=== PATIENT | female | born 1975 | race Two or more races ===

== ENCOUNTER 2016-11-04 11:31 | Day surgery (SDC) | payer BC, OTHER ==
[2016-11-01 14:30] VITALS: BMI 28.3
[~2016-11-04 11:31] MED LIST: LACTATED RINGERS 1,000 ML IV SCH
[2016-11-04] MEDS ORDERED: LIDOCAINE 1% 20 ML VIAL (10MG/ML) FOR IV START SQ ONE (12:08)
[2016-11-04 12:15] VITALS: TEMP 98.9
[2016-11-04] MEDS ORDERED: PROPOFOL 10 MG/ML 20 ML VIAL IV ONE (12:46)
[2016-11-04] MEDS ORDERED: MIDAZOLAM 2 MG/2 ML VIAL ONE (12:46)
[2016-11-04] MEDS ORDERED: fentaNYL (PF) 50 MCG/ML 2 ML AMP ONE (12:46)
[2016-11-04] MEDS ORDERED: LIDOCAINE 1% INJ 10MG/ML (20 ML MDV) ONE (12:46)
[2016-11-04 13:19] VITALS: RESP 16
[2016-11-04 13:37] LABS: Basophils % (A) 0 %; CH 34.3; CHCM 33.7; Eosinophils # (A) 0.2 k/uL (0-0.7); Eosinophils % (A) 3 %; HCT 41.8 % (34.0-46.0); HDW 2.09; HGB 13.7 gm/dL (11.4-16.0); Luc # (Auto) 0.14; Luc % (Auto) 2; Lymphocytes # (A) 1.9 k/uL (1.0-4.8); Lymphocytes % (A) 22 %; MCH 33.5 pg (25.0-35.0); MCHC 32.8 g/dL (31.0-37.0); MCV 102.2 fL (80.0-100.0); Macrocytosis Slight; Mean Platelet Volume 7.4; Monocytes # (A) 0.4 k/uL (0-1.0); Monocytes % (A) 4 %; Neutrophils % (A) 69 %; RDW 13.4 % (11.5-15.5); WBC 8.6 k/uL (3.8-10.6); WBC (Perox) 8.91
--- NOTE | 2016-11-04 13:56 | PCN ---
DATE OF PROCEDURE: 11/04/2016 PROCEDURE: Bone marrow aspirate and biopsy. 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 After obtaining consent from the patient, the procedure was performed in the Endoscopy Suite under general anesthesia performed by the Anesthesia Team. The patient was put on the left side in the typical position. The right posterior superior iliac crest was localized. The skin was cleansed with ChloraPrep. All sterile procedures were followed, 2% Xylocaine was used for local anesthetic. A 5 inch Jamshidi needle was inserted, about 10 mL aspirate and a 2 cm core biopsy was obtained without any difficulties. Pressure applied afterward. There was negligible blood loss. Patient tolerated the procedure very well without any immediate complications.
[2016-11-04 14:05] VITALS: BP 109/74; PULSE 79
== END 2016-11-04 14:18 | disposition home or self-care (01) ==
LOC: OR 11:31
PROVIDERS: ATTEND Internal Medicine Hematology & Oncology
DX: D47.3 Essential (hemorrhagic) thrombocythemia (principal); E61.1 Iron deficiency; N92.4 Excessive bleeding in the premenopausal period; G43.909 Migraine, unspecified, not intractable, without status migrainosus; D25.9 Leiomyoma of uterus, unspecified; Z87.891 Personal history of nicotine dependence; Z88.1 Allergy status to other antibiotic agents; Z79.82 Long term (current) use of aspirin; Z79.899 Other long term (current) drug therapy
CPT/HCPCS: 81025; 85025; 38221; J2250; J2001; J3010; J2704; G0364